=== PATIENT | male | born 1985 | race Hispanic/Latino ===

== ENCOUNTER 2023-04-24 17:58 | Emergency (ER) | payer OTHER ==
[2023-04-24] MEDS ORDERED: dexAMETHasone 10 MG/ML VIAL ONE (18:46)
--- NOTE | 2023-04-24 19:29 | ER ---
Nurse's Notes [facility] Name: Reginaldo Gonzáles Age: 38 yrs Sex: Male : 1985 Arrival Date: 04/24/2023 Time: 17:58 Bed IW2 Private MD: Diagnosis: Otitis media, unspecified, right ear;SARS-associated coronavirus as the cause of diseases classified elsewhere Presentation: 04/24 18:39 Chief complaint: Patient states: congestion, body aches and right ear pain onset cm10 yesterday. Pt denies any sick contacts. Coronavirus screen: Vaccine status: Patient reports being unvaccinated. Client denies travel out of the [place] in the last 14 days. Ebola Screen: Patient denies travel to an Ebola-affected area in the 21 days before illness onset. No symptoms or risks identified at this time. Initial Sepsis Screen: Does the patient meet any 2 criteria? No. Patient's initial sepsis screen is negative. Does the patient have a suspected source of infection? No. Patient's initial sepsis screen is negative. Risk Assessment: Do you want to hurt yourself or someone else? Patient reports no desire to harm self or others. Onset of symptoms was April 24, 2023. 18:39 Method Of Arrival: Ambulatory cm10 18:39 Acuity: ELIS 3 cm10 Triage Assessment: 19:37 General: Appears in no apparent distress. Behavior is calm, cooperative. kl Historical: - Allergies: 18:40 No Known Allergies; cm10 - Home Meds: 18:40 None [Active]; cm10 - PMHx: 18:40 None; cm10 - PSHx: 18:40 None; cm10 - Immunization history:: Adult Immunizations unknown. - Social history:: Smoking status: Patient reports the use of cigarette tobacco products, denies chronic smoking, but will smoke occasionally. Screenin:36 [facility] ED Fall Risk Assessment (Adult) History of falling in the last 3 months, including since admission No falls in past 3 months (0 pts). Abuse screen: Denies threats or abuse. Nutritional screening: No deficits noted. Tuberculosis screening: No symptoms or risk factors identified. Assessment: 19:36 Reassessment: Patient appears in no apparent distress at this time. Pain: Complains of kl pain in right ear. Neuro: No deficits noted. Respiratory: No deficits noted. Vital Signs: 18:39 BP 126 / 90; Pulse 75; Resp 16; Temp 98.4; Pulse Ox 99% ; Weight 92.99 kg; Height 5 ft. cm10 10 in. ; 19:36 BP 125 / 74; Pulse 73; Resp 16; Pulse Ox 100% on R/A; kl 18:39 Body Mass Index 29.41 (92.99 kg, 177.8 cm) cm10 ED Course: 18:01 Patient arrived in ED. kj1 18:03 Jayde Gillespie FNP-C is [facility]. kb 18:03 Raimundo Adams MD is Attending Physician. kb 18:34 COVID-19 SARS RT PCR Sent. cm10 18:34 Flu Sent. cm10 18:40 Triage completed. cm10 18:40 Arm band placed on Patient placed in waiting room. cm10 19:37 No provider procedures requiring assistance completed. Patient did not have IV access kl during this emergency room visit. Administered Medications: 18:38 Drug: Dexamethasone IM 10 mg Route: IM; Site: right vastus lateralis; cm10 Outcome: 19:28 Discharge ordered by . kb 19:37 Discharged to home ambulatory. kl 19:37 Condition: stable 19:37 Discharge instructions given to patient, Instructed on discharge instructions, follow up and referral plans. Demonstrated understanding of instructions, follow-up care, medications, Prescriptions given X 1. 19:37 Patient left the ED. kl Signatures: Jayde Gillespie FNP-C FNP-Ckb Lewis, Kimberly, RN RN kl Jackson, Kandis kj1 Nesha Kam RN RN cm10
--- NOTE | 2023-04-24 19:29 | EDPHYS ---
Physician Documentation [facility] Name: Reginaldo Gonzáles Age: 38 yrs Sex: Male : 1985 Arrival Date: 04/24/2023 Time: 17:58 Bed IW2 Private MD: ED Physician Raimundo Adams HPI: 04/24 18:31 This 38 yrs old Male presents to ER via Unassigned with complaints of Flu kb Symptoms. 18:31 The patient or guardian reports cough, that is intermittent, described as mild, flu kb symptoms, myalgias. Onset: The symptoms/episode began/occurred this morning. Severity of symptoms: At their worst the symptoms were moderate, in the emergency department the symptoms are unchanged. Modifying factors: The symptoms are alleviated by nothing, the symptoms are aggravated by nothing. Associated signs and symptoms: Pertinent positives: rhinorrhea. The patient has not experienced similar symptoms in the past. The patient has not recently seen a physician. Historical: - Allergies: 18:40 No Known Allergies; cm10 - Home Meds: 18:40 None [Active]; cm10 - PMHx: 18:40 None; cm10 - PSHx: 18:40 None; cm10 - Immunization history:: Adult Immunizations unknown. - Social history:: Smoking status: Patient reports the use of cigarette tobacco products, denies chronic smoking, but will smoke occasionally. ROS: 18:22 Abdomen/GI: Negative for abdominal pain, nausea, vomiting, diarrhea, and constipation. kb 18:22 Constitutional: Positive for body aches, malaise. 18:22 ENT: Positive for rhinorrhea, sinus congestion. 18:22 Respiratory: Positive for cough. 18:22 All other systems are negative. Exam: 18:22 Constitutional: This is a well developed, well nourished patient who is awake, alert, kb and in no acute distress. Head/Face: Normocephalic, atraumatic. Cardiovascular: Regular rate and rhythm with a normal S1 and S2. No gallops, murmurs, or rubs. No pulse deficits. Respiratory: Respirations even and unlabored. No increased work of breathing. Talking in full sentences Skin: Warm, dry with normal turgor. Normal color. MS/ Extremity: Pulses equal, no cyanosis. Neurovascular intact. Full, normal range of motion. Neuro: Awake and alert, GCS 15, oriented to person, place, time, and situation. Moves all extremities. Normal gait. 18:22 ENT: TM's: bulging, on the right, erythema, that is moderate, on the right. Vital Signs: 18:39 BP 126 / 90; Pulse 75; Resp 16; Temp 98.4; Pulse Ox 99% ; Weight 92.99 kg; Height 5 ft. cm10 10 in. ; 19:36 BP 125 / 74; Pulse 73; Resp 16; Pulse Ox 100% on R/A; kl 18:39 Body Mass Index 29.41 (92.99 kg, 177.8 cm) cm10 MDM: 18:03 Patient medically screened. kb 18:23 Differential diagnosis: flu, covid, sinusitis, uri. Data reviewed: vital signs, nurses kb notes. 18:31 Counseling: I had a detailed discussion with the patient and/or guardian regarding the kb historical points, exam findings, and any diagnostic results supporting the discharge/admit diagnosis, lab results, the need for outpatient follow up, a family practitioner, to return to the emergency department if symptoms worsen or persist or if there are any questions or concerns that arise at home. 04/24 18:08 Order name: Flu kb 04/24 18:08 Order name: COVID-19 SARS RT PCR; Complete Time: 19:28 kb Administered Medications: 18:38 Drug: Dexamethasone IM 10 mg Route: IM; Site: right vastus lateralis; cm10 Disposition Summary: 04/24/23 19:28 Discharge Ordered Location: Home kb Condition: Stable kb Diagnosis - Otitis media, unspecified, right ear kb - SARS-associated coronavirus as the cause of diseases classified elsewhere kb Followup: kb - With: Emergency Department - When: As needed - Reason: Worsening of condition Followup: kb - With: Private Physician - When: 2 - 3 days - Reason: Recheck today's complaints, Continuance of care, Re-evaluation by your physician Discharge Instructions: - Discharge Summary Sheet kb - Otitis Media, Adult, [id number] kb - COVID-19 kb - Viral Illness, Adult kb Forms: - Work release form kb - Medication Reconciliation Form kb - Thank You Letter kb - Antibiotic Education kb - Prescription Opioid Use kb - Patient Portal Instructions kb - Leadership Thank You Letter kb Prescriptions: - Amoxicillin 875 mg Oral Tablet - take 1 tablet by ORAL route every 12 hours for 10 days; 20 tablet; Refills: 0, kb Product Selection Permitted Signatures: Dispatcher [employer] Jayde Salazar, Nesha Haq, RN RN cm10
[2023-04-24 19:41] VITALS: BP 126/90; TEMP 98.4; O2SAT 99
== END 2023-04-24 19:37 | disposition home or self-care (01) ==
LOC: ER 17:58
DX: U07.1 COVID-19 (principal); H66.91 Otitis media, unspecified, right ear
CPT/HCPCS: 87635; 87804 ×2; J1100